=== PATIENT | female | born 1960 | race Caucasian/White ===

== ENCOUNTER 2022-01-18 02:02 | Day surgery (SDC) | payer BC, SELFPAY ==
[2022-01-09 09:14] VITALS: BMI 25.2
--- NOTE | 2022-01-17 10:17 | PM.HPGS ---
History of Present Illness History of Present Illness Consent: Risks, benefits, and alternatives have been discussed and questions answered. Patient agrees to proceed with procedure. Chief complaint: neoplasm screening Narrative: Hailey Roach is a 61 year old female was referred for colon cancer screening Review of Systems Review of Systems: All systems reviewed & are unremarkable except as noted in HPI and below PMFSH Social History Social History Smoking status: Never smoker Alcohol intake: current Drinks per week: 2 Substance use: never Substance use type: does not use Living arrangements: with family Spiritual care concerns: No Meds Home Medications and Allergies Home Medications Medication Instructions Recorded Confirmed Type cetirizine 10 mg capsule (Zyrtec) 10 mg PO DAILY 01/09/22 01/18/22 History Allergies Allergy/AdvReac Type Severity Reaction Status Date / Time No Known Allergies Allergy Verified 01/18/22 06:52 Exam Resp: Auscultation: clear to auscultation bilaterally Cardio: Rate: regular rate Rhythm: regular rhythm GI: GI Palp: Yes Soft to palpation and No Tenderness to palpation present (GI) Assessment and Plan Assessment and plan (1) Colon cancer screening: Code(s): Z12.11 - Encounter for screening for malignant neoplasm of colon Status: Acute Assessment and Plan: Colonoscopy with possible biopsy or polypectomy or cautery or injection of substances.
[2022-01-18 07:00] VITALS: BP 110/71; PULSE 71; RESP 18; TEMP 36.4; O2SAT 98
[2022-01-18] MEDS: LACTATED RINGERS 1,000 ML 150 ML IV CONT (07:10)
--- NOTE | 2022-01-18 07:44 | P.PNAN_ITS ---
Anes - Initial Pre Proc Eval Procedure: Operation Date: 01/18/22 08:00 Proposed Procedures p Screening Colonoscopy - Zachary Dejesus MD Date/Time: 01/18/22 07:45 Surgeon: Zachary Dejesus MD Pre Op Diagnosis: neoplasm screening Patient Data Age: 61 Gender: F Height: 1.7 m Weight: 70 kg Last Vital Signs Temp 36.4 C L 01/18/22 07:00 Pulse 71 01/18/22 07:00 Resp 18 01/18/22 07:00 BP 110/71 01/18/22 07:00 Pulse Ox 98 01/18/22 07:00 O2 Del Method Room Air 01/18/22 07:00 Allergies Allergy/AdvReac Type Severity Reaction Status Date / Time No Known Allergies Allergy Verified 01/18/22 06:52 Home Medications Medication Instructions Recorded Confirmed Type cetirizine 10 mg capsule (Zyrtec) 10 mg PO DAILY 01/09/22 01/18/22 History Patient hx anesthesia problems: none Family hx anesthesia problems: none Results Review: All pre-operative results and documents have been reviewed as part of the pre-operative evaluation. [facility] Social History Social History Smoking status: Never smoker Alcohol intake: current Drinks per week: 2 Substance use: never Substance use type: does not use Living arrangements: with family Spiritual care concerns: No Anes - Eval Final PreProcedure Day of Procedure 01/18/22 07:45 Patient weight: normal Heart: regular rate and rhythm Lungs: clear to auscultation Airway: Mallampati scale class II Neurological: alert and oriented Last oral intake: >/= 8 hours ASA classification: I Emergent: no Anesthetic plan: proceed Anesthesia type and monitoring: general GIVS and standard monitoring Results Review: All pre-operative results and documents have been reviewed as part of the pre- operative evaluation. Informed Consent: The patient's anesthetic plan and its attendant risks and benefits were discussed with the patient/family/POA. Questions were solicited and answers provided to the satisfaction of the patient/family/POA.
[2022-01-18 08:12] VITALS: BP 129/83; PULSE 90; RESP 20; O2SAT 97
[2022-01-18 08:22] VITALS: BP 128/80; PULSE 76; RESP 20; O2SAT 100
[2022-01-18 08:32] VITALS: BP 138/78; PULSE 72; RESP 18; O2SAT 100
== END 2022-01-18 08:45 | disposition home or self-care (01) ==
PROVIDERS: PCP Nurse Practitioner Family; Visit Provider Internal Medicine Gastroenterology
PROC: 0DJD8ZZ Inspection of Lower Intestinal Tract, Via Natural or Artificial Opening Endoscopic (ICD-10-PCS; CPT 45378; principal; 2022-01-18 08:00)
DX: Z12.11 Encounter for screening for malignant neoplasm of colon (principal); K63.5 Polyp of colon
CPT/HCPCS: 45385; 88305; J2704; J7120

== ENCOUNTER 2023-05-30 13:30 | Outpatient (RCR) | payer BC, SELFPAY ==
--- NOTE | 2023-03-23 15:18 | STOPEVAL1 ---
Assessment and note entered by Ольга Cheng, ONLINE EDITOR Reported Pain Level Pain Score 0: Self Report Assessment ST Clinical Summary VOICE EVALUATION The patient was seen for a Voice Evaluation at the request of her otolaryngolist. 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 Patient's voice can be described as both harsh and hoarse but also breathy. Patient was able be heard and understood in spite of loss of voicing. Patient expressed how this voice disorder has affected her work and home life, that people across the room have great difficulty hearing and understanding her, that those on the phone also have difficulty and that she feels she has to attempt to increase vocal loudness to facilitate improved conversation which causes strain and fatigue. Speech Therapy twice weekly was recommended to address vocal hygiene program but then for respiration/phonation coordination tasks and tasks to reduce the stress on the vocal cords however due to patient's work schedule it was agreed that structured Speech Therapy would be addressed one time weekly for four weeks for instruction, assessment and advancement of home program. Patient voiced understanding and agreement with recommendations. Thank you for this referral. Plan of Care Interventions Treatment of Voice ST Services Indicated Yes Treatment Frequency and 1xwk/6 weeks. Duration These treatments will address the objective and functional deficits as defined above. The patient will be advanced safely and appropriately in order for the patient to progress towards his/her prior level of function. Additional exercises will be introduced and as well as a comprehensive home exercise program upon discharge, if needed, ?to ensure carryover of functional gains achieved in the clinic. This treatment plan has been reviewed and agreement upon by the patient.
--- NOTE | 2023-05-10 14:05 | STOPPROG ---
Assessment and note entered by Ольга Cheng, MANAGER AUDIO Evaluation Information Assessment Status Progress Assessment ST Clinical Summary PROGRESS NOTE/TREATMENT SUMMARY The patient reports that she feels her voice has improved however she has had instances of loss of voice or voice becoming squeaky earlier in the day /afternoon, improving as the day progresses. She stated that she takes allergy medication and she feels that helps, as well. Patient reports she has been doing exercises, and stated, they go okay. She reported that sustaining the ah sound is difficult, that she can reach about the count of 4, but beyond that, it triggers a cough/throat clear and possibly creates pain. Patient stated that her has expressed that he wants to see her continue in direct Speech Therapy; she reports she was not sure if she would continue or not, but at end of session, after seeing the numbers that indicate significant improvement, patient expressed that she wants to continue skilled Speech Therapy. Patient performed as follows on various evaluation tasks: Sustain ah sound: 12 seconds today (initially 1 second). Sustain ah in decibels: 75 decibels, average ( initially 63 decibels). Reading decibel level: 75 decibels (initially 65 decibels). Conversation Loudness: 75-76 decibels (initially 68 decibels). Sustain /s/ sound: 23 seconds (initially 9 seconds). Sustain /z/ sound: 18 seconds (initially 3 seconds). Sustain /z/ sound: 18 seconds (initially 3 seconds). Pitch range raised: 428 hertz (initially 303 hz). Pitch range lowered: 210 hertz (initially 68 hz indicating that patient fell into a significantly lower pitch range initially where now, her pitch ranges in the 200's which is more within normal limits for age and sex). Of note, when therapist offered descriptive words such as harsh and hoarse patient still felt bot
--- NOTE | 2023-05-30 14:30 | STOPDC ---
Assessment and note entered by Ольга Cheng BILLET ASSEMBLER Evaluation Information Assessment Status Evaluation Reported Pain Level Pain Score 0: Self Report Assessment ST Clinical Summary TREATMENT SUMMARY AND DISCHARGE SUMMARY The patient was seen for an initial Voice Evaluation on with subsequent treatment sessions to improve voicing skills and reduce vocal hoarseness. Patient participated well in all tasks however she did not exhibit improved voicing until she was asked to raise pitch level when speaking. This triggered a more normal voice and patient was given tasks to complete using a deliberately higher pitch. It was after this was discovered to trigger improved voicing that patient exhibited quicker, more consistent improvement in voicing. By time of discharge, patient was exhibiting adequate vocal loudness with an average decibel level of 79-81 decibels, and more appropriate pitch average of 252 hertz (initially range was reaching 290-310 decibels which is unusually high for a mature woman. Today therapy focused on increasing the strength of the voice and patient averaged 79-82 decibels during conversation, oral reading, and sustaining the ah sound; this loudness range is within normal limits. Her pitch averaged 232 to 252 hertz, also within average range. She was noted to have 5/10 [id number] statements with softer, more hoarse voicing, self-correcting 4/5 without therapist reminder, and then completing the session with improved, clear voicing while producing [id number] statements. Patient judged her own voice to be minimally hoarse, having days with no presence of hoarse voice and with adequate loudness and quality. Patient expressed satisfaction with care and was discharged from direct Speech Therapy treatments with all goals achieved. She reports she will continue home exercise program 2-3 times weekly to maintain strength and loudness and that she returns to ENT in August. Plan of Care ST Services Indicated Yes
== END 2023-05-30 15:07 | disposition home or self-care (01) ==
LOC: ANHST 13:30
PROVIDERS: PCP Nurse Practitioner Family; Visit Provider Otolaryngology
DX: R49.9 Unspecified voice and resonance disorder (principal); C32.9 Malignant neoplasm of larynx, unspecified
CPT/HCPCS: 92507; 92524

== ENCOUNTER 2024-02-22 10:57 | Outpatient (CLI) | payer BC, SELFPAY ==
--- NOTE | ~2024-02-22 | XR_ITS ---
EXAMINATION: XR chest 2V 02/22/2024 11:18 INDICATION: Wheezing symptoms. Cough for 3 weeks. PROCEDURE: 2 view chest COMPARISON: No prior studies for comparison. FINDINGS: The lungs are clear. The cardiomediastinal silhouette is within normal limits. There are no pleural effusions. There is no pneumothorax suspected. There is dextroscoliosis of the thoracic spine. IMPRESSION: 1: NO ACUTE CARDIOPULMONARY DISEASE. Reviewed, dictated and finalized at location B.
== END 2024-02-22 10:58 | disposition home or self-care (01) ==
LOC: ANHIMG 11:01
DX: R06.2 Wheezing (principal)
CPT/HCPCS: 71046

== ENCOUNTER 2024-02-25 10:24 | Outpatient (CLI) | payer BC, SELFPAY ==
--- NOTE | ~2024-02-25 | CT_ITS ---
CT sinus wo con Ordering provider: Fabio Sosa, History: . CHRONIC SINUSITIS . Comparison: None. Technique: Thin slice Scans CT of the paranasal sinuses was performed with coronal and sagittal refor matted images. No IV contrast. . Automated exposure control and iterative reconstruction technique w ere employed. The dose-length product was 265.85 mGy-cm. Findings: NASAL SEPTUM: Left Nasal septal deviation. OSTEOMEATAL UNITS: Bilaterally patent. NASAL TURBINATES AND NASOPHARYNX: Small left medial turbinate otherwise, Normal. PARANASAL SINUSES: Bilateral maxillary sinus disease. Right ethmoid sinus disease. VISUALIZED MASTOIDS: Normal as visualized. Possibility of the adjacent superior semicircular canal is not excluded. Further evaluation with CT temporal bones advised. Osteoarthritic changes of the temporomandibular joints. BONES: Normal. SUPERFICIAL SOFT TISSUES/VISUALIZED BRAIN PARENCHYMA: Normal. IMPRESSION: Bilateral maxillary sinus disease. Left nasal septal deviation. Small-sized left middle turbinate. 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 Further evaluation advised. Reviewed, dictated and finalized at location A.
== END 2024-02-25 10:25 ==
LOC: MICIMG 10:27
PROVIDERS: Visit Provider Otolaryngology
DX: J32.9 Chronic sinusitis, unspecified (principal); J34.2 Deviated nasal septum
CPT/HCPCS: 70486

== ENCOUNTER 2024-04-07 10:09 | Outpatient (CLI) | payer BC, SELFPAY ==
--- NOTE | 2024-04-07 11:51 | WPDPFTINT ---
PFT Procedure Performed PFT Procedure Performed Spirometry with Pre/Post Bronchodilator Plethysmography (Lung Vol) Diffusing Cap (DLCO) Flow Vol Loop PFT Interpretation This is a pulmonary function test with pre and post-bronchodilator spirometry, plethysmography and diffusing capacity. The test was performed and results interpreted in accordance with the 2019 and 2005 ATS/ERS Task Force guidelines respectively using the Global Lung Function Initiative-2012 reference equations. Patient demonstrated good effort and cooperation. Reproducibility criteria were met. The quality of the pre bronchodilator spirometry maneuver was Grade A and post bronchodilator spirometry maneuver was Grade A. Findings: Spirometry: The contour the inspiratory and expiratory flow tracing are normal. The pre bronchodilator FVC is 3.56 L, 104% predicted. The pre bronchodilator FEV1 is 2.48 L, 93% predicted. The pre bronchodilator FEV1: FVC ratio 70%. The post bronchodilator FVC is 3.21 L, representing a 10% decrease. The post bronchodilator FEV1 is 1.94 L, rate representing a 22% decrease. The post bronchodilator FEV1: FVC ratio is 60%. Plethysmography: The total lung capacity is 5.31 L, 97% predicted. The functional residual capacity is 3.19 L, 102% predicted. The residual volume is 1.76 L, 81% predicted. Diffusing capacity: The diffusing capacity unadjusted for hemoglobin and carboxyhemoglobin is 20.9, 92% predicted. The diffusing capacity adjusted for alveolar volume is 4.80, 112% predicted. Impression: The spirometry is normal without evidence of an obstructive abnormality. There is a significant decrease in the post bronchodilator FEV1 consistent with a possible paradoxical bronchoconstriction after inhaled albuterol. Clinical correlation is recommended. The lung volumes are normal. The diffusing capacity is normal. There are no prior studies for comparison
== END 2024-04-07 10:10 | disposition home or self-care (01) ==
LOC: ANHPFT 10:10
PROVIDERS: Visit Provider Physician Assistant
DX: J06.9 Acute upper respiratory infection, unspecified (principal)
CPT/HCPCS: 94060; 94726; 94729